=== PATIENT | female | born 1985 | race Caucasian/White ===

== ENCOUNTER 2017-09-30 21:44 | Emergency (ER) | payer SELFPAY ==
[~2017-09-30] VITALS: Ht 165.1 cm; Wt 54.5 kg
[~2017-09-30 21:44] MED LIST: DOCU-131 PO; IBUP-1223 PO; OXYC-302 PO
[2017-09-30 21:45] VITALS: BP 149/94
[2017-09-30] MEDS ORDERED: ONDANSETRON 2MG/ML, 2ML ONE (22:14)
[2017-09-30] MEDS ORDERED: MORPHINE SULFATE 4 MG/ML, 1ML ONE (22:15)
[2017-09-30] MEDS ORDERED: SODIUM CHLORIDE FLUSH 10ML SYR IVF ONE (22:30)
[2017-09-30] MEDS ORDERED: MORPHINE SULFATE 4 MG/ML, 1ML IVPush PRN (22:30)
[2017-09-30] MEDS ORDERED: ONDANSETRON 2MG/ML, 2ML IVPush ONE (22:30)
[2017-09-30] MEDS ORDERED: SODIUM CHLORIDE 0.9% 1,000ML IVBOLUS ONE (22:30)
[2017-09-30 22:33] LABS: BASOPHILS # (AUTO) 0.11 x10^3/uL (0-0.1); BASOPHILS % (AUTO) 1 % (0-1); EOSINOPHILS # (AUTO) 0.06 x10^3/uL (0-0.4); EOSINOPHILS % (AUTO) 0 % (1-7); LYMPHOCYTES # (AUTO) 1.54 x10^3/uL (1-3.4); LYMPHOCYTES % (AUTO) 12 % (22-44); MD NO; MEAN CORPUSCULAR HEMOGLOBIN 30.8 pg (27.0-34.8); MEAN CORPUSCULAR HGB CONC 33.5 g/dL (32.4-35.8); MEAN PLATELET VOLUME 8.4 fL (7.4-10.4); MONOCYTES # (AUTO) 0.51 x10^3/uL (0.2-0.8); MONOCYTES % (AUTO) 4 % (2-9); NEUTROPHILS # (AUTO) 11.21 x10^3/uL (1.8-6.8); NEUTROPHILS % (AUTO) 84 % (42-75); PLATELET COUNT 259 x10^3/uL (130-400); RED BLOOD COUNT 4.36 x10^6/uL (3.82-5.3); RED CELL DISTRIBUTION WIDTH 14.3 % (9.6-15.2)
[2017-09-30 22:43] LABS: ALBUMIN 3.7 g/dL (3.4-5.0); ANION GAP 9 mmol/L (5-15); CHLORIDE 106 mmol/L (98-107); CREATININE 0.71 mg/dL (0.55-1.02)
== END 2017-10-01 01:01 | disposition home or self-care (01) ==
LOC: ED 23:50
DX: O03.4 Incomplete spontaneous abortion without complication (principal)
CPT/HCPCS: 36415; 76801; 80048; 82040; 84702; 85025; 86901; 96361; 96374; 96375; 99285; J2405; J7030